=== PATIENT | male | born 1935 | race Caucasian/White ===

== ENCOUNTER 2016-11-24 09:57 | Day surgery (SDC) ==
[2016-11-24] MEDS ORDERED: LIDOCAINE 1% 20 ML MDV ID ONE (10:28)
[2016-11-24] MEDS ORDERED: VERSED ONE (11:30)
[2016-11-24] MEDS ORDERED: DIPRIVAN 20 ML VIAL IVP ONE (11:30)
[2016-11-24 12:23] VITALS: BP 118/63; TEMP 98
--- NOTE | 2016-11-25 13:28 | OP ---
INDICATIONS FOR PROCEDURE: 81 year old gentleman presents for colonoscopy. He has a history of abnormal polyps and last colonoscopy over five years ago. MEDICATIONS: SEE ANESTHESIA NOTES. PROCEDURE: COLONOSCOPY, SNARE POLYPECTOMY. REPORT: The risks, benefits, alternatives and limitations were discussed in detail with the patient. Informed consent was obtained. After adequate sedation was achieved, a digital rectal exam revealed good tone, no masses. The colonoscope was introduced into the rectum and advanced under direct visual guidance to the cecum. The cecum was identified by the appendiceal orifice and IC valve. While advancing the scope I encountered a small 5or 6mm sessile polyp in the proximal midtransverse colon. This was removed by snare technique and then the scope was advanced onto the cecum. Once I reached the cecum I slowly withdrew the scope in circumferential manner and examined the mucosa quite carefully. I looked on the proximal and distal sides of the folds and flexures as best as possible. I sent the retroflex scope in the right colon as well as the left colon. I identified the polypectomy site and there was mild to moderate diverticulosis scattered throughout the sigmoid. On retroflex view of the anal canal there was a small internal hemorrhoid and no other abnormalities were noted. The prep was good. Withdraw time was 7 minutes and 11 seconds. The patient tolerated the procedure well with stable vital signs and pulse oximetry throughout. IMPRESSION: 1. Small polyp removed 2. Diverticulosis 3. Small internal hemorrhoid RECOMMENDATIONS: 1. High fiber diet 2. Office visit as needed 3. Restart his Plavix 4. Warnings were given on post polypectomy bleeding risk and complications and what to do 5. Future colonoscopies on an as needed basis given his advanced age and health. CC: Dr. Barry Lau. [facility]
== END 2016-11-24 12:42 | disposition home or self-care (01) ==
LOC: SURG 09:57
PROVIDERS: ATTEND Internal Medicine Gastroenterology
DX: Z09 Encounter for follow-up examination after completed treatment for conditions other than malignant neoplasm (principal); Z86.010 Personal history of colon polyps; D12.3 Benign neoplasm of transverse colon; K57.30 Diverticulosis of large intestine without perforation or abscess without bleeding; K64.8 Other hemorrhoids

== ENCOUNTER 2017-01-05 08:39 | Outpatient (CLI) ==
--- NOTE | 2017-01-05 09:20 | DI ---
[facility]: Three x-rays of the chest. Comparison: 12/11/2015 Reason for exam: Abnormal findings in lungs. FINDINGS: No pneumothorax, pleural effusion, or focal consolidation. There is similar appearing patchy basila r airspace opacities in both lung bases. The cardiac silhouette is unchanged. The imaged osseous structures are grossly unremarkable without acute fracture. Parenchymal changes are seen consistent with chronic emphysematous disease. There are similar appearing parenchymal and mediastinal granulomatous nodules. Impression: No significant interval change from the previous exam with basilar atelectasis/scarring and granulom as disease.
== END 2017-01-05 08:40 | disposition home or self-care (01) ==
LOC: RAD 08:39
PROVIDERS: ATTEND Internal Medicine Pulmonary Disease
DX: R91.8 Other nonspecific abnormal finding of lung field (principal)

== ENCOUNTER 2018-01-11 13:38 | Outpatient (CLI) ==
--- NOTE | 2018-01-11 14:10 | DI ---
EXAM: PA and lateral views of the chest HISTORY: Interstitial pulmonary fibrosis COMPARISON: Chest x-ray 01/05/2017 and numerous priors including CT 12/14/2013 FINDINGS: The cardiomediastinal silhouette is normal. There is no pneumothorax or pleural effusion. There is no consolidation, nodule or mass. 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 There is an endograft in the upper abdomen. IMPRESSION: No acute cardiopulmonary process with findings consistent with chronic obstructive pulmo nary disease versus mild interstitial fibrosis. There is no acute consolidation.
== END 2018-01-11 13:39 | disposition home or self-care (01) ==
LOC: RAD 13:38
PROVIDERS: ATTEND Internal Medicine Pulmonary Disease
DX: J84.89 Other specified interstitial pulmonary diseases (principal)